=== PATIENT | male | born 1975 | race Two or more races ===

== ENCOUNTER 2020-05-31 16:30 | Emergency (ER) | payer OTHER ==
[~2020-05-31] VITALS: Ht 172.7 cm; Wt 136.4 kg
[2020-05-31] MEDS ORDERED: iohexol 300mg/ml 100ml inj. ONE (18:11)
[2020-05-31 19:02] LABS: BASOPHILS # (AUTO) 0.1 X10'3 (0-0.2); BASOPHILS % (AUTO) 0.6 % (0-1); EOSINOPHILS # (AUTO) 0.1 X10'3 (0-0.9); EOSINOPHILS % (AUTO) 0.8 % (0-6); HEMATOCRIT 41.6 % (42.0-52.0); HEMOGLOBIN 13.8 g/dl (14.0-17.9); LYMPHOCYTES % (AUTO) 16.1 % (21-51); MEAN CORPUSCULAR HEMOGLOBIN 29.6 PG (27.0-31.0); MEAN CORPUSCULAR HGB CONC 33.1 g/dL (33.0-36.5); MEAN CORPUSCULAR VOLUME 89.4 FL (78-98); MEAN PLATELET VOLUME 8.8 FL (7.4-10.4); MONOCYTES # (AUTO) 1.3 X10'3 (0-0.9); MONOCYTES % (AUTO) 10.4 % (2-12); NEUTROPHILS % (AUTO) 72.1 % (42-75); PLATELET COUNT 249 X10'3 (140-440); RED BLOOD COUNT 4.65 X10'6 (4.70-6.10); RED CELL DISTRIBUTION WIDTH 14.5 % (11.5-14.5); WHITE BLOOD COUNT 12.4 X10'3 (4.5-11.0)
[2020-05-31 19:06] LABS: PARTIAL THROMBOPLASTIN TIME 25 SECONDS (22-32)
[2020-05-31 19:08] LABS: ALANINE AMINOTRANSFERASE 67 U/L (12-78); ALBUMIN 3.8 G/DL (3.4-5.0); ALBUMIN/GLOBULIN RATIO 0.8 (1.1-1.5); ALKALINE PHOSPHATASE 102 IU/L (46-116); ANION GAP 8 (8-16); ASPARTATE AMINO TRANSFERASE 33 U/L (10-37); BILIRUBIN,TOTAL 0.5 MG/DL (0.1-1.0); BLOOD UREA NITROGEN 14 MG/DL (7-18); BUN/CREATININE RATIO 14.1 (5.4-32.0); CALCIUM 9.2 MG/DL (8.5-10.1); CHLORIDE 104 MMOL/L (99-107); CREATININE 0.99 MG/DL (0.60-1.10); GLUCOSE 101 MG/DL (70-104); POTASSIUM 3.9 MMOL/L (3.5-5.1); SODIUM 140 MMOL/L (135-145); TOTAL CARBON DIOXIDE 27.8 MMOL/L (24-32); TOTAL PROTEIN 8.5 G/DL (6.4-8.2); eGFR 81 ML/MIN
[2020-05-31] MEDS ORDERED: CYCL-1 PO (20:06)
[2020-05-31] MEDS ORDERED: ACET-1025 PO (20:06)
--- NOTE | 2020-05-31 20:11 | NUR ---
RENNY DIAZ AT BEDSIDE TO UPDATED PT OF PLAN OF CARE. PT CURRENTLY SITTING AT EDGE OF BED.
[2020-05-31 20:28] VITALS: BP 134/96
== END 2020-05-31 20:23 | disposition home or self-care (01) ==
LOC: ER 16:30
DX: M54.5 Low back pain (principal); M54.2 Cervicalgia; M25.571 Pain in right ankle and joints of right foot; M25.531 Pain in right wrist; D36.9 Benign neoplasm, unspecified site; F17.200 Nicotine dependence, unspecified, uncomplicated; Z79.899 Other long term (current) drug therapy
CPT/HCPCS: 36415; 70450; 71260; 72125; 73110; 73610; 74177; 80053; 85025; 85610; 85730; 99285; Q9967